=== PATIENT | female | born 1970 | race Hispanic/Latino ===

== ENCOUNTER 2018-01-29 17:08 | Emergency (ER) | payer MEDICAID, OTHER ==
[2018-01-29 17:23] VITALS: BP 126/91; PULSE 93; RESP 16; TEMP 97.8; O2SAT 99
[2018-01-29] MEDS ORDERED: Tmp-Smz 800 mg-160 mg DS Tab PO STA (17:29)
[2018-01-29] MEDS ORDERED: Tmp-Smz 800 mg-160 mg DS Tab ONE (17:35)
--- NOTE | 2018-01-29 17:35 | ED PDOC ---
Lower Extremity Pain/Injury Time Seen by Provider: 01/29/18 17:19 Chief Complaint (Nursing): Lower Extremity Problem/Injury Chief Complaint (Provider): Lower Extremity Problem/Injury History Per: Patient History/Exam Limitations: no limitations Onset/Duration Of Symptoms: Days Current Symptoms Are (Timing): Still Present Additional Complaint(s): 47 y/o female with no significant PMHx presents to the ED complaining of an insect bite sustained to the right lower extremity with increasing pain, itching and swelling to the site, onset yesterday. Denies fever, chills, medications for symptom relief. PMD: Nakita Polo Past Medical History Reviewed: Historical Data, Nursing Documentation, Vital Signs Vital Signs: Last Vital Signs Temp 97.8 F 01/29/18 17:20 Pulse 93 H 01/29/18 17:20 Resp 16 01/29/18 17:20 BP 126/91 H 01/29/18 17:20 Pulse Ox 99 01/29/18 17:20 - Medical History PMH: Back Problems, Kidney Stones, Chronic Pain - Surgical History Surgical History: Appendectomy - Family History Family History: States: Unknown Family Hx - Home Medications Home Medications: Ambulatory Orders Medication Instructions Recorded oxyCODONE/Acetaminophen [Percocet 1 tab PO Q6 PRN #15 tab 05/02/14 5/325 mg Tab] Acetaminophen/Codeine Phosph 1 tab PO Q4 PRN #6 tab 01/28/15 [Acetaminophen and Codeine Phosphate #3 300 mg] Cephalexin [cephalexin] 500 mg PO BID #14 cap 01/29/18 DiphenhydrAMINE [Benadryl] 50 mg PO Q4 PRN #30 cap 01/29/18 Sulfamethoxazole/Trimethoprim 1 tab PO BID 5 Days tab 01/29/18 [Bactrim DS 800 mg-160 mg] - Allergies Allergies/Adverse Reactions: Allergies Allergy/AdvReac Type Severity Reaction Status Date / Time No Known Allergies Allergy Verified 01/29/18 17:19 Review of Systems ROS Statement: Except As Marked, All Systems Reviewed And Found Negative Constitutional: Negative for: Fever, Chills Skin: Positive for: Other (insect bite on right lower extremity) Physical Exam - Reviewed Nursing Documentation Reviewed: Yes Vital Signs Reviewed: Yes - Physical Exam Appears: Positive for: No Acute Distress Head Exam: Positive for: ATRAUMATIC, NORMOCEPHALIC Skin: Positive for: Normal Color, Warm, Dry Eye Exam: Positive for: Normal appearance, EOMI, PERRL Neck: Positive for: Normal, Painless ROM Cardiovascular/Chest: Positive for: Regular Rate, Rhythm Respiratory: Positive for: Normal Breath Sounds Extremity: Positive for: Normal ROM, Other (5 cm area of erythema and edema. No fluctuance. Centralized papula noted consistent with insect bite.) Neurologic/Psych: Positive for: Alert, Oriented (x3). Negative for: Motor/ Sensory Deficits - ECG O2 Sat by Pulse Oximetry: 99 (RA) Pulse Ox Interpretation: Normal Medical Decision Making Medical Decision Making: Time: 1730 Plan: -- Keflex 500 mg PO -- Benadryl 50 mg PO -- Bactrim DS 1 tab PO Scribe Attestation: Documented by Mary Duncan, acting as a scribe for Maggi Torres PA-C. Provider Scribe Attestation: All medical record entries made by the Scribe were at my direction and personally dictated by me. I have reviewed the chart and agree that the record accurately reflects my personal performance of the history, physical exam, medical decision making, and the department course for this patient. I have also personally directed, reviewed, and agree with the discharge instructions and disposition. Disposition - Clinical Impression Clinical Impression: Insect bite, Cellulitis - Patient ED Disposition Is Patient to be Admitted: No - Disposition Disposition: Routine/Home Disposition Time: 17:58 Condition: STABLE Prescriptions: Cephalexin [cephalexin] 500 mg PO BID #14 cap DiphenhydrAMINE [Benadryl] 50 mg PO Q4 PRN #30 cap PRN Reason: Rash Sulfamethoxazole/Trimethoprim [Bactrim DS 800 mg-160 mg] 1 tab PO BID 5 Days tab Instructions: Cellulitis (Skin Infection), Adult (DC), Insect Bites and Stings Forms: [employer] (Chinese) - POA Present On Arrival: None
== END 2018-01-29 18:08 | disposition home or self-care (01) ==
LOC: H.ER 17:08
DX: S80.861A Insect bite (nonvenomous), right lower leg, initial encounter (principal); W57.XXXA Bitten or stung by nonvenomous insect and other nonvenomous arthropods, initial encounter; Y92.89 Other specified places as the place of occurrence of the external cause; G89.29 Other chronic pain

== ENCOUNTER 2018-09-09 16:03 | Emergency (ER) | payer OTHER ==
[2018-09-09 16:14] VITALS: BP 113/77; PULSE 76; RESP 18; TEMP 98.7; O2SAT 99
--- NOTE | 2018-09-09 17:56 | ED PDOC ---
HPI: Allergic Reaction Time Seen by Provider: 09/09/18 16:39 Chief Complaint (Nursing): Allergic Reaction Chief Complaint (Provider): Allergic Reaction History Per: Patient History/Exam Limitations: no limitations Onset/Duration Of Symptoms: Hrs Current Symptoms Are (Timing): Still Present Additional Complaint(s): 48 y/o female with no significant PMHx presents to the ED for evaluation of a itchy rash for the past couple of hours. Patient states symptoms began on her lower back and buttocks radiating to her upper back, shoulders and chest. Otherwise, patient denies taking any medications for itching or rash, fever, chills, use of new lotions or detergent, shortness of breath and tongue swelling. Patient is unsure if she ate anything new. PMD: no provider Past Medical History Reviewed: Historical Data, Nursing Documentation, Vital Signs Vital Signs: Last Vital Signs Temp 98.7 F 09/09/18 16:11 Pulse 76 09/09/18 16:11 Resp 18 09/09/18 16:11 BP 113/77 09/09/18 16:11 Pulse Ox 99 09/09/18 16:11 - Medical History PMH: Anxiety, Back Problems, Bipolar Disorder, Depression, Kidney Stones, Chronic Kidney Disease, Seizures, Chronic Pain Denies: Diabetes, Hepatitis, HIV, HTN, Sexually Transmitted Disease - Surgical History Surgical History: Appendectomy - Family History Family History: States: Unknown Family Hx - Home Medications Home Medications: Ambulatory Orders Medication Instructions Recorded DiphenhydrAMINE [Benadryl] 25 mg PO Q6 PRN 5 Days cap 09/09/18 Famotidine [Pepcid] 20 mg PO BID #3 tab 09/09/18 Prednisone 40 mg PO DAILY #4 tab.ds.pk 09/09/18 - Allergies Allergies/Adverse Reactions: Allergies Allergy/AdvReac Type Severity Reaction Status Date / Time No Known Allergies Allergy Verified 04/26/18 20:41 Review of Systems ROS Statement: Except As Marked, All Systems Reviewed And Found Negative Constitutional: Negative for: Fever, Chills ENT: Negative for: Mouth Swelling, Throat Pain, Throat Swelling Gastrointestinal: Negative for: Nausea, Vomiting Skin: Positive for: Rash Physical Exam - Reviewed Nursing Documentation Reviewed: Yes Vital Signs Reviewed: Yes - Physical Exam Appears: Positive for: Non-toxic Head Exam: Positive for: ATRAUMATIC Skin: Positive for: Rash (mildly erythematous uritcarial rash to the lower back and trunk noted with sparing of bilateral arms and legs. No drainage. ) ENT: Negative for: Pharyngeal Erythema, Tonsillar Exudate, Tonsillar Swelling, Other (tongue swelling or pharngeal edema) Neck: Positive for: Painless ROM Neurologic/Psych: Positive for: Alert, Oriented - ECG O2 Sat by Pulse Oximetry: 99 (RA) Pulse Ox Interpretation: Normal - Progress ED Course And Treament: Time: 1713 Impression: Rash Plan: -- Benadryl 50 mg PO -- Pepcid 20 mg PO -- Prednisone 40 mg PO Re-evaluated prior to d/c. Rash has and appears less erythematous/edematous. Pt states that the itch has improved. Stable for d/c home with return instructions provided. Scribe Attestation: Documented by Mary Duncan, acting as a scribe Dirk Mc PA-C. Provider Scribe Attestation: All medical record entries made by the Scribe were at my direction and personally dictated by me. I have reviewed the chart and agree that the record accurately reflects my personal performance of the history, physical exam, medical decision making, and the department course for this patient. I have also personally directed, reviewed, and agree with the discharge instructions and disposition. Disposition - Clinical Impression Clinical Impression: Allergic reaction - Patient ED Disposition Is Patient to be Admitted: No Counseled Patient/Family Regarding: Diagnosis, Need For Followup, Rx Given - Disposition Referrals: Abhijit Stewart MD [Medical Doctor] - Disposition: Routine/Home Disposition Time: 18:12 Condition: STABLE Additional Instructions: You should follow up with your primary care doctor as you may need to see an fountain dispenser to determine what caused your rash. Take Prednisone and Pepcid as prescribed. Take Benadryl as needed. Return to ER if your rash returns or if you start to have tongue or throat swelling. Prescriptions: DiphenhydrAMINE [Benadryl] 25 mg PO Q6 PRN 5 Days cap PRN Reason: Allergy Symptoms Famotidine [Pepcid] 20 mg PO BID #3 tab Prednisone 40 mg PO DAILY #4 tab.ds.pk Instructions: Allergy Skin Testing Forms: [employer] (Turkish) Print Language: BELGIAN
== END 2018-09-09 18:14 | disposition home or self-care (01) ==
LOC: H.ER 16:03
DX: T78.40XA Allergy, unspecified, initial encounter (principal)

== ENCOUNTER 2018-09-10 15:38 | Emergency (ER) | payer OTHER ==
[2018-09-10 15:44] VITALS: BP 122/69; PULSE 81; RESP 16; TEMP 98.2; O2SAT 97
--- NOTE | 2018-09-10 17:16 | ED PDOC ---
HPI: General Adult Time Seen by Provider: 09/10/18 16:50 Chief Complaint (Nursing): ENT Problem Chief Complaint (Provider): Left Ear Pain History Per: Patient History/Exam Limitations: no limitations Onset/Duration Of Symptoms: Hrs (x1) Current Symptoms Are (Timing): Still Present Additional Complaint(s): 48 year old female presents to the ED for evaluation of left ear pain s/p sticking a q-tip too deep in the ear approximately one hour prior to arrival. Denies subsequent bleeding, headache, dizziness, and taking any medications prior to arrival. Of note, patient was seen in ED yesterday for an urticarial rash which was treated with Prednisone, Benadryl, and Pepcid. Patient has been unable to fill the scripts, but does say the rash has completely resolved since initial treatment. PMD: none provided Past Medical History Reviewed: Historical Data, Nursing Documentation, Vital Signs Vital Signs: Last Vital Signs Temp 98.2 F 09/10/18 15:43 Pulse 81 09/10/18 15:43 Resp 16 09/10/18 15:43 BP 122/69 09/10/18 15:43 Pulse Ox 97 09/10/18 15:43 - Medical History PMH: Anxiety, Back Problems, Bipolar Disorder, Depression, Kidney Stones, Chronic Kidney Disease, Seizures, Chronic Pain Denies: Diabetes, Hepatitis, HIV, HTN, Sexually Transmitted Disease - Surgical History Surgical History: Appendectomy - Family History Family History: States: Unknown Family Hx - Home Medications Home Medications: Ambulatory Orders Medication Instructions Recorded DiphenhydrAMINE [Benadryl] 25 mg PO Q6 PRN 5 Days cap 09/09/18 Famotidine [Pepcid] 20 mg PO BID #3 tab 09/09/18 Prednisone 40 mg PO DAILY #4 tab.ds.pk 09/09/18 Ibuprofen [Motrin Tab] 600 mg PO Q6 PRN 7 Days tab 09/10/18 - Allergies Allergies/Adverse Reactions: Allergies Allergy/AdvReac Type Severity Reaction Status Date / Time No Known Allergies Allergy Verified 09/10/18 15:42 Review of Systems ROS Statement: Except As Marked, All Systems Reviewed And Found Negative ENT: Positive for: Ear Pain (left). Negative for: Other (ear bleeding) Neurological: Negative for: Headache, Dizziness Physical Exam - Reviewed Nursing Documentation Reviewed: Yes Vital Signs Reviewed: Yes - Physical Exam Appears: Positive for: No Acute Distress Head Exam: Positive for: ATRAUMATIC, NORMAL INSPECTION, NORMOCEPHALIC Skin: Positive for: Normal Color, Warm, Dry. Negative for: Rash (no further rash noted on trunk) Eye Exam: Positive for: Normal appearance ENT: Positive for: Other (left ear: canal mildly erythematous, TM intact, no bleeding or swelling; right ear: unremarkable). Negative for: Pharyngeal Erythema, Tonsillar Exudate, Tonsillar Swelling - ECG O2 Sat by Pulse Oximetry: 97 (RA) Pulse Ox Interpretation: Normal Medical Decision Making Medical Decision Making: Time: 1702 Initial Impression: left ear pain Initial Plan: --Ibuprofen 600mg PO Scribe Attestation: Documented by Alecia Lockett, acting as a scribe for Amanda Mc PA-C. Provider Scribe Attestation: All medical record entries made by the Scribe were at my direction and personally dictated by me. I have reviewed the chart and agree that the record accurately reflects my personal performance of the history, physical exam, medical decision making, and the department course for this patient. I have also personally directed, reviewed, and agree with the discharge instructions and disposition. Disposition - Clinical Impression Clinical Impression: Left ear pain - Disposition Referrals: [facility] [Outside] Disposition Time: 17:15 Condition: STABLE Additional Instructions: Take Ibuprofen or Tylenol for pain. Avoid placing anything in left ear until irritation resolves. Prescriptions: Ibuprofen [Motrin Tab] 600 mg PO Q6 PRN 7 Days tab PRN Reason: Pain, Moderate (4-7) Forms: [employer] (Belarusian) Print Language: AMHARIC
== END 2018-09-10 17:36 | disposition home or self-care (01) ==
LOC: H.ER 15:38
DX: H92.02 Otalgia, left ear (principal); Z86.59 Personal history of other mental and behavioral disorders; G89.29 Other chronic pain; N18.9 Chronic kidney disease, unspecified; Z87.442 Personal history of urinary calculi

== ENCOUNTER 2018-10-17 13:16 | Emergency (ER) | payer SELFPAY ==
[2018-10-17 13:29] VITALS: BP 140/90; PULSE 91; RESP 18; TEMP 98.1; O2SAT 98
[2018-10-17] MEDS ORDERED: Albuterol-Ipratrop 3 mg / 0.5 (3 ml) UD INH STA (15:00)
[2018-10-17] MEDS ORDERED: Albuterol-Ipratrop 3 mg / 0.5 (3 ml) UD ONE (15:18)
--- NOTE | 2018-10-17 15:52 | RAD ---
Date of service: 10/17/2018 HISTORY: shortness of breath, cough COMPARISON: 08/12/2013. TECHNIQUE: Chest PA and lateral views FINDINGS: LUNGS: Interstitial lung disease, mild reticulonodular type. No significant interval change. PLEURA: No significant pleural effusion identified. No pneumothorax apparent. CARDIOVASCULAR: No aortic atherosclerotic calcification present. Normal cardiac size. No pulmonary vascular congestion. OSSEOUS STRUCTURES: No significant abnormalities. VISUALIZED UPPER ABDOMEN: Normal. OTHER FINDINGS: None. IMPRESSION: No active pulmonary disease. No significant interval change compared to the prior examination(s).
--- NOTE | 2018-10-17 16:41 | ED PDOC ---
HPI: General Adult Time Seen by Provider: 10/17/18 13:46 Chief Complaint (Nursing): Medical Clearance Chief Complaint (Provider): medical clearance History Per: Patient History/Exam Limitations: no limitations Additional Complaint(s): 48 y/o F with hx of asthma who was brought in by [facility] for medical and psych clearance for incarceration. Pt states that she is having a cough for the past week productive of clear/white sputum with some shortness of breath this afternoon. She ran out of her inhaler. Denies C/P, palpitations, SI/HI, auditory of visual hallucinations. She has a mild TORRES and has not taken meds. Denies visual disturbance, gait or speech disturbance, dizziness, N/V. Past Medical History Reviewed: Historical Data, Nursing Documentation, Vital Signs Vital Signs: Last Vital Signs Temp 98.1 F 10/17/18 13:25 Pulse 91 H 10/17/18 13:25 Resp 18 10/17/18 13:25 BP 140/90 10/17/18 13:25 Pulse Ox 98 10/17/18 13:25 - Medical History PMH: Anxiety, Back Problems, Bipolar Disorder, Depression, Kidney Stones, Post Traumatic Stress Disorder, Chronic Kidney Disease, Seizures, Chronic Pain Denies: Diabetes, Hepatitis, HIV, HTN, Sexually Transmitted Disease - Surgical History Surgical History: Appendectomy - Family History Family History: States: Unknown Family Hx - Home Medications Home Medications: Ambulatory Orders Medication Instructions Recorded DiphenhydrAMINE [Benadryl] 25 mg PO Q6 PRN 5 Days cap 09/09/18 Famotidine [Pepcid] 20 mg PO BID #3 tab 09/09/18 Prednisone 40 mg PO DAILY #4 tab.ds.pk 09/09/18 Ibuprofen [Motrin Tab] 600 mg PO Q6 PRN 7 Days tab 09/10/18 Albuterol HFA [Ventolin HFA 90 1 puff IH Q6 PRN #1 inhaler 10/17/18 mcg/actuation (8 g)] - Allergies Allergies/Adverse Reactions: Allergies Allergy/AdvReac Type Severity Reaction Status Date / Time No Known Allergies Allergy Verified 09/10/18 15:42 Review of Systems Constitutional: Negative for: Fever, Chills ENT: Negative for: Ear Pain Cardiovascular: Negative for: Chest Pain Respiratory: Positive for: Cough, Shortness of Breath Physical Exam - Reviewed Nursing Documentation Reviewed: Yes Vital Signs Reviewed: Yes - Physical Exam Appears: Positive for: Non-toxic Skin: Positive for: Normal Color Eye Exam: Positive for: Normal appearance ENT: Positive for: Normal ENT Inspection Cardiovascular/Chest: Positive for: Regular Rate, Rhythm Respiratory: Positive for: Wheezing (B/L) Gastrointestinal/Abdominal: Positive for: Normal Exam Lymphatic: Positive for: Normal Exam Neurological/Psych: Positive for: Awake, Alert, Oriented, Mood/Affect (appropriate), 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 Negative for: Facial Droop - ECG O2 Sat by Pulse Oximetry: 98 Medical Decision Making Medical Decision Making: DuoNeb CXR Crisis evaluation Urine preg Ibuprofen 600mg PO x 1 CXR PA and lateral: no active disease Seen by drug abuse social worker and cleared for incarceration as per Dr. Hsu. Patient re-examined: lungs clear B/L. Feeling better. Pt is medically and psychiatrically stable for incarceration. Disposition - Clinical Impression Clinical Impression: Medical clearance for incarceration, Asthma - Patient ED Disposition Is Patient to be Admitted: No - Disposition Referrals: [facility] [Outside] Disposition: Discharged/Transfer to Law Enforcement Disposition Time: 18:04 Condition: STABLE Additional Instructions: You are medically and psychiatrically cleared for incarceration. Prescriptions: Albuterol HFA [Ventolin HFA 90 mcg/actuation (8 g)] 1 puff IH Q6 PRN #1 inhaler PRN Reason: Wheezing Instructions: Asthma, Adult (DC), General (DC) Forms: [employer] (Mozambican) Print Language: TUVALUAN
== END 2018-10-17 18:03 | disposition home or self-care (01) ==
LOC: H.ER 13:16
DX: J45.909 Unspecified asthma, uncomplicated (principal); F31.9 Bipolar disorder, unspecified; F43.10 Post-traumatic stress disorder, unspecified; G89.29 Other chronic pain; Z79.899 Other long term (current) drug therapy

== ENCOUNTER 2018-10-26 02:42 | Emergency (ER) | payer SELFPAY ==
[2018-10-26 03:07] VITALS: BP 129/81; PULSE 100; RESP 18; TEMP 99.2; O2SAT 97
--- NOTE | 2018-10-26 04:15 | ED PDOC ---
HPI: Psych/Substance Abuse Time Seen by Provider: 10/26/18 03:09 Chief Complaint (Nursing): Substance Abuse Chief Complaint (Provider): Substance Abuse ED Caveat: Intoxicated History Per: Patient, EMS History/Exam Limitations: intoxication Onset/Duration Of Symptoms: Unknown Current Symptoms Are (Timing): Still Present Suicide/Self Injury Attempted (Context): None Modifying Factor(s): Marijuana Additional Complaint(s): 48 y/o female with a PMHx of Asthma, Bipolar Disorder, Seizures and an Ap pendectomy as per previous charts brought in by EMS for evaluation of substance abuse. Patient admits to using marijuana earlier today. Patient is a limited historian due to her clinical condition. Denies alcohol use, suicidal ideation and homicidal ideation. PMD: no provider Past Medical History Reviewed: Historical Data, Nursing Documentation, Vital Signs Vital Signs: Last Vital Signs Temp 99.2 F 10/26/18 03:04 Pulse 100 H 10/26/18 03:04 Resp 18 10/26/18 03:04 BP 129/81 10/26/18 03:04 Pulse Ox 97 10/26/18 03:04 - Medical History PMH: Anxiety, Asthma, Back Problems, Bipolar Disorder, Depression, Kidney Stones, Post Traumatic Stress Disorder, Chronic Kidney Disease, Seizures, Chronic Pain Denies: Diabetes, Hepatitis, HIV, HTN, Sexually Transmitted Disease - Surgical History Surgical History: Appendectomy - Family History Family History: States: Unknown Family Hx - Social History Drugs: Other (marijuana) - Home Medications Home Medications: Ambulatory Orders Medication Instructions Recorded DiphenhydrAMINE [Benadryl] 25 mg PO Q6 PRN 5 Days cap 09/09/18 Famotidine [Pepcid] 20 mg PO BID #3 tab 09/09/18 Prednisone 40 mg PO DAILY #4 tab.ds.pk 09/09/18 Ibuprofen [Motrin Tab] 600 mg PO Q6 PRN 7 Days tab 09/10/18 Albuterol HFA [Ventolin HFA 90 1 puff IH Q6 PRN #1 inhaler 10/17/18 mcg/actuation (8 g)] - Allergies Allergies/Adverse Reactions: Allergies Allergy/AdvReac Type Severity Reaction Status Date / Time No Known Allergies Allergy Verified 09/10/18 15:42 Review of Systems Review Of Systems: ROS cannot be obtained secondary to pt's inabilty to answer questions. Physical Exam - Reviewed Nursing Documentation Reviewed: Yes Vital Signs Reviewed: Yes - Physical Exam Appears: Positive for: No Acute Distress Head Exam: Positive for: ATRAUMATIC Skin: Positive for: Normal Color, Warm, Dry Eye Exam: Positive for: Normal appearance, EOMI Neck: Positive for: Normal, Painless ROM, Supple Cardiovascular/Chest: Positive for: Regular Rate, Rhythm. Negative for: Murmur Respiratory: Positive for: Normal Breath Sounds. Negative for: Respiratory Distress Gastrointestinal/Abdominal: Positive for: Normal Exam, Soft. Negative for: Tenderness Extremity: Positive for: Normal ROM. Negative for: Deformity Neurological/Psych: Positive for: Oriented (x3), Gait (steady). Negative for: Awake (Arousable), Motor/Sensory Deficits - ECG O2 Sat by Pulse Oximetry: 97 (RA) Pulse Ox Interpretation: Normal - Progress Re-evaluation Time: 04:30 Condition: Re-examined, Improved Medical Decision Making Medical Decision Making: Time: 408 Impression: Substance abuse, possible alcohol intoxication. Plan: -- Alcohol Serum -- Urine Drug Screen Scribe Attestation: Documented by Mary Duncan, acting as a scribe Fanta Mcgill MD. Provider Scribe Attestation: All medical record entries made by the Scribe were at my direction and personally dictated by me. I have reviewed the chart and agree that the record a ccurately reflects my personal performance of the history, physical exam, medical decision making, and the department course for this patient. I have also personally directed, reviewed, and agree with the discharge instructions and disposition. Disposition - Clinical Impression Clinical Impression: Substance abuse - Patient ED Disposition Is Patient to be Admitted: No Doctor Will See Patient In The: Office Counseled Patient/Family Regarding: Studies Performed, Diagnosis, Need For Followup - Disposition Disposition: Routine/Home Disposition Time: 04:48 Condition: IMPROVED Additional Instructions: TY SANTANA, thank you for letting us take care of you today. Your provider was Erick Mcgill MD and you were treated for POSS SUBSTANCE ABUSE. The emergency medical care you received today was directed at your acute symptoms. If you were prescribed any medication, please fill it and take as directed. It may take several days for your symptoms to resolve. Return to the Emergency Department if your symptoms worsen, do not improve, or if you have any other problems. Please contact your doctor or call one of the physicians/clinics you have been referred to that are listed on the Patient Visit Information form that is included in your discharge packet. Bring any paperwork you were given at [facility] with you along with any medications you are taking to your follow up visit. Our treatment cannot replace ongoing medical care by a primary care provider outside of the emergency department. Thank you for allowing the [facility] team to be part of your care today. Instructions: Drug Abuse and Drug Addiction (DC)
== END 2018-10-26 05:14 | disposition home or self-care (01) ==
LOC: H.ER 02:42
DX: F12.90 Cannabis use, unspecified, uncomplicated (principal); F31.9 Bipolar disorder, unspecified; F43.10 Post-traumatic stress disorder, unspecified

== ENCOUNTER 2018-11-08 12:24 | Emergency (ER) | payer MEDICAID, OTHER ==
[2018-11-08 12:32] VITALS: BP 109/74; PULSE 95; RESP 19; TEMP 98; O2SAT 98
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
== END 2018-11-08 14:13 | disposition home or self-care (01) ==
LOC: H.ER 12:24 → SUPCPDRO 12:24 → H.ER 14:13
DX: B35.3 Tinea pedis (principal); Z86.59 Personal history of other mental and behavioral disorders; F43.10 Post-traumatic stress disorder, unspecified; G89.29 Other chronic pain; J45.909 Unspecified asthma, uncomplicated; N18.9 Chronic kidney disease, unspecified; Z59.0 Homelessness; Z87.442 Personal history of urinary calculi

== ENCOUNTER 2018-11-29 12:32 | Emergency (ER) | payer MEDICAID ==
[2018-11-29 12:39] VITALS: RESP 18
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
[2018-11-29 15:34] VITALS: BP 128/74; PULSE 80; TEMP 98.4; O2SAT 99
== END 2018-11-29 15:33 | disposition home or self-care (01) ==
LOC: H.ER 12:32
DX: F43.20 Adjustment disorder, unspecified (principal)